=== PATIENT | female | born 1945 | race Caucasian/White ===

== ENCOUNTER 2017-04-05 12:59 | Day surgery (SDC) | payer MEDICARE ==
[~2017-04-05] VITALS: Ht 162.6 cm; Wt 58.2 kg
[~2017-04-05 12:59] MED LIST: LEVSOD75 PO
== END 2017-04-05 14:36 | disposition home or self-care (01) ==
LOC: ORSCSDS 12:59
PROVIDERS: Internal Medicine Gastroenterology
PROC: 0DJD8ZZ Inspection of Lower Intestinal Tract, Via Natural or Artificial Opening Endoscopic (ICD-10-PCS; principal; 2017-04-05 13:30)
DX: Z12.11 Encounter for screening for malignant neoplasm of colon (principal); K64.8 Other hemorrhoids; K57.30 Diverticulosis of large intestine without perforation or abscess without bleeding; Z86.010 Personal history of colon polyps; Z80.0 Family history of malignant neoplasm of digestive organs; G47.33 Obstructive sleep apnea (adult) (pediatric); E03.9 Hypothyroidism, unspecified; Z79.899 Other long term (current) drug therapy
CPT/HCPCS: J7120